=== PATIENT | female | born 1950 | race Asian ===

== ENCOUNTER 2022-08-09 11:53 | Inpatient (IN) | payer OTHER ==
[~2022-08-09] VITALS: Ht 154.9 cm; Wt 65.8 kg
--- NOTE | 2022-08-09 12:34 | NUR ---
pt placed in bed 02
--- NOTE | 2022-08-09 12:37 | NUR ---
PT REFUSING BLOOD DRAW AT THIS TIME.
[2022-08-09 12:38] VITALS: BP 140/81
--- NOTE | 2022-08-09 13:00 | NUR ---
XRAY DONE BEDSIDE.
--- NOTE | 2022-08-09 13:58 | NUR ---
JENNIE CAME INTO BEDSIDE. APPLY JUICE OFFERED TO PT.
[2022-08-09 14:26] LABS: BASOPHILS % (AUTO) 0.1 % (0.0-2.0); EOSINOPHILS % (AUTO) 0.3 % (0.0-4.0); HEMATOCRIT 26.5 % (36-48); HEMOGLOBIN 9.3 g/dL (12.0-16.0); LYMPHOCYTES # (AUTO) 0.6 K/uL (2.5-16.5); LYMPHOCYTES % (AUTO) 10.2 % (20.5-51.1); MEAN CORPUSCULAR HEMOGLOBIN 30 pg (27-31); MEAN CORPUSCULAR HGB CONC 35 g/dL (33-37); MEAN CORPUSCULAR VOLUME 84.4 fL (80-94); MONOCYTES # (AUTO) 0.3 K/uL (0.8-1.0); MONOCYTES % (AUTO) 5.4 % (1.7-9.3); NEUTROPHILS # (AUTO) 5.1 K/uL (1.8-7.7); PLATELET COUNT (AUTO) 207 K/uL (140-450); RED BLOOD CELL COUNT(AUTO) 3.14 MIL/uL (4.20-5.40); RED CELL DISTRIBUTION WIDTH 14.2 % (11.6-13.7); WHITE BLOOD COUNT (AUTO) 6.1 K/uL (4.8-10.8)
[2022-08-09 14:47] LABS: ALBUMIN 3.5 g/dL (3.4-5.0); ANION GAP 12.3 (8-16); ASPARTATE AMINOTRANSFERASE 16 U/L (15-37); CARBON DIOXIDE 28.2 mmol/L (21-32); CHLORIDE 99 mmol/L (98-107); CREATININE 0.3 mg/dL (0.6-1.3); GLUCOSE 72 mg/dL (74-106); POTASSIUM 3.5 mmol/L (3.5-5.1); SODIUM SERUM 136 mmol/L (136-145); TOTAL BILIRUBIN 0.4 mg/dL (0.0-1.0); UREA NITROGEN, BLOOD 19 mg/dL (7-18)
[2022-08-09] MEDS ORDERED: DEXTROSE 50% 50 ML SYR IVP ONE ×2 (16:11→16:15)
[2022-08-09] MEDS ORDERED: DEXT 5% / NACL 0.9% 500 ML IV ONE (16:15)
--- NOTE | 2022-08-09 16:15 | NUR ---
NAHUN AGAIN 31. D50W 50ML GIVEN IVP. DR. MUNOZ NOTIFIED STAT.
[2022-08-09] MEDS ORDERED: ONDANSETRON 4 MG/2 ML VIAL IVP PRN (16:25)
[2022-08-09] MEDS ORDERED: ACETAMINOPHEN 325 MG TAB PO PRN (16:25)
[2022-08-09] MEDS ORDERED: DOCUSATE SODIUM 100 MG GELCAP PO PRN (16:25)
[2022-08-09] MEDS ORDERED: MORPHINE SULFATE 2 MG/ML SYR IVP PRN (16:25)
[2022-08-09] MEDS ORDERED: POTASSIUM CHLORIDE 10 MEQ TABER PO PRN (16:25)
[2022-08-09 16:33] LABS: APPEARANCE,URINE CLEAR (CLEAR); BILIRUBIN,URINE NEGATIVE (NEGATIVE); BLOOD, URINE NEGATIVE (NEGATIVE); COLOR,URINE YELLOW (YELLOW); LEUKOCYTE ESTERASE ,URINE NEGATIVE (NEGATIVE); NITRITE, URINE NEGATIVE (NEGATIVE); UGLUCOSE NEGATIVE (NEGATIVE)
--- NOTE | 2022-08-09 17:01 | NUR ---
PATIENT HAS BEEN SCREENED AND CATEGORIZED MODERATE NUTRITION RISK. PATIENT WILL BE SEEN WITHIN 3-5 DAYS OF ADMISSION. REVIEWED BY AUDRA MERINO RD
[2022-08-09] MEDS: DEXT 5% /NACL 0.9% 1,000 ML IV SCH (18:06)
--- NOTE | 2022-08-09 19:30 | NUR ---
Patient received on bed lying comfortably and awake. Alert and oriented x4. No acute distress. No complaints of pain or discomfort. Respirations even and unlabored.
[2022-08-09] MEDS ORDERED: DEXTROSE 50% 50 ML SYR IVP SCH (21:30)
--- NOTE | 2022-08-09 22:13 | NUR ---
Blood sugar check was done at 2109, result was 38 mg/dl. Called Dr. Lozada, cyber security consultant physician for Dr. Marsh, and was notified of patient's blood sugar. New order of D50 50 ml IV once obtained. Noted and carried out. D50 given at 2144. Blood sugar rechecked at 2204, result was 205 mg/dl.
[2022-08-09] MEDS ORDERED: ZOLPIDEM 5 MG TAB ONE ×2 (23:55→23:59)
[2022-08-09] MEDS: ZOLPIDEM 10 MG TAB PO PRN (23:56)
[2022-08-10] MEDS: DEXT 5% /NACL 0.9% 1,000 ML IV SCH ×2 (06:47→21:01)
--- NOTE | 2022-08-10 07:00 | NUR ---
Called Dr. Lozada and notified him of patient's last blood sugar after the D50 was given as ordered. Asked Dr. Lozada for order of blood sugar check before meals and bedtime including a D50 order as needed for low blood sugar. Dr. Lozada approved it. Noted and carried out. Blood sugar checked, result is 205 mg/dl.
[2022-08-10] MEDS ORDERED: DEXTROSE 50% 50 ML SYR IVP PRN ×2 (07:05→09:00)
--- NOTE | 2022-08-10 07:40 | NUR ---
pt got up ambulated to the commode w steady gait, had a bm, soft stool, talking in Tajik no facial grimacing or grunting, 02 sat 95% at 2 l/m via nc, removed o2, sr up times 2.
[2022-08-10 07:42] LABS: BASOPHILS % (AUTO) 0.1 % (0.0-2.0); EOSINOPHILS # (AUTO) 0.1 K/uL (0-0.4); EOSINOPHILS % (AUTO) 0.9 % (0.0-4.0); HEMATOCRIT 25.7 % (36-48); HEMOGLOBIN 8.6 g/dL (12.0-16.0); LYMPHOCYTES # (AUTO) 0.6 K/uL (2.5-16.5); LYMPHOCYTES % (AUTO) 10.9 % (20.5-51.1); MEAN CORPUSCULAR HEMOGLOBIN 29 pg (27-31); MEAN CORPUSCULAR HGB CONC 34 g/dL (33-37); MEAN CORPUSCULAR VOLUME 87.6 fL (80-94); MONOCYTES # (AUTO) 0.3 K/uL (0.8-1.0); MONOCYTES % (AUTO) 5.5 % (1.7-9.3); NEUTROPHILS # (AUTO) 4.9 K/uL (1.8-7.7); NEUTROPHILS % (AUTO) 82.6 % (42.2-75.2); PLATELET COUNT (AUTO) 190 K/uL (140-450); RED BLOOD CELL COUNT(AUTO) 2.94 MIL/uL (4.20-5.40); RED CELL DISTRIBUTION WIDTH 14.1 % (11.6-13.7); WHITE BLOOD COUNT (AUTO) 5.9 K/uL (4.8-10.8)
--- NOTE | 2022-08-10 08:10 | NUR ---
PT TRANSFERRED TO FLOOR, REPORT TO SALEEM, NO INCIDENTS AT TRANSFER TIME, PT CALM AND COOPERATIVE, 02 SAT 98% RA
--- NOTE | 2022-08-10 08:30 | NUR ---
RECIEVED PATIENT FROM ER, AOx4. PATIENT IS AMBULATORY WITH ASSISTANCE. PATIENT HAS DEMENTIA AND MUST BE MONITORED DUE TO HER BEING AMBULATORY. PATIENT DOES NOT WANT BEDSIDE COMODE AND WISHES TO BE ASSISTED TO BATHROOM.
[2022-08-10 09:30] LABS: ANION GAP 11.8 (8-16); CARBON DIOXIDE 26.9 mmol/L (21-32); CHLORIDE 99 mmol/L (98-107); CREATININE 0.6 mg/dL (0.6-1.3); GLUCOSE 181 mg/dL (74-106); POTASSIUM 3.7 mmol/L (3.5-5.1); SODIUM SERUM 134 mmol/L (136-145); UREA NITROGEN, BLOOD 17 mg/dL (7-18)
[2022-08-10] MEDS: MAG SULF 2000 MG/WATER PREMIX 50 ML IV PRN (11:31)
[2022-08-10] MEDS: BLOOD GLUCOSE MONITORING 1 DEV DEV FS SCH ×3 (11:50→21:00)
[2022-08-10 12:00] VITALS: BP 105/99
[2022-08-10] MEDS: INSULIN LISPRO SLIDING SCALE 100 UNITS/ML VIAL SUBQ PRN ×2 (12:40→23:13)
[2022-08-10 16:30] VITALS: BP 122/67
--- NOTE | 2022-08-10 19:48 | NUR ---
ENDORSED PT TO PUBLISHING AGENT NURSE FOR CONTINUITY OF CARE. PT STABLE AT THIS TIME.
[2022-08-10 20:00] VITALS: BP 138/70
[2022-08-11] VITALS: BP 152/68
[2022-08-11] MEDS ORDERED: LORazepam 2 MG/ML VIAL IVP STA (01:07)
--- NOTE | 2022-08-11 01:40 | NUR ---
Pt awake, agitated and disoriented, refused to stay in bed, refused care, walking out in hallways, unable to to reorient or redirect, administered, ativan 2mg ivp as ordered at 01:08, pt continued to get out of bed and hit staff when attempting to redirect. pt's son called and informed of the situation , aware of Ativan given. Md bed control specialist , Dr. Samuels informed of the above, ordered for restraint, park interpreter utilized, #[id number], pt confused per park interpreter. restraint applied, pt took restraint and walked in hallways, with risk for fall. Notified Dr. Samuels, ordered, ativan 2mg ivp stat admin x1, pt in bed, at this time, restraint removed cont. to monitor
[2022-08-11 04:00] VITALS: BP 142/52
[2022-08-11 06:03] LABS: BASOPHILS % (AUTO) 0.2 % (0.0-2.0); EOSINOPHILS # (AUTO) 0.1 K/uL (0-0.4); HEMATOCRIT 25.8 % (36-48); HEMOGLOBIN 8.8 g/dL (12.0-16.0); LYMPHOCYTES # (AUTO) 0.6 K/uL (2.5-16.5); MEAN CORPUSCULAR HEMOGLOBIN 30 pg (27-31); MEAN CORPUSCULAR HGB CONC 34 g/dL (33-37); MEAN CORPUSCULAR VOLUME 86.5 fL (80-94); MONOCYTES # (AUTO) 0.4 K/uL (0.8-1.0); NEUTROPHILS # (AUTO) 6.1 K/uL (1.8-7.7); PLATELET COUNT (AUTO) 200 K/uL (140-450); RED BLOOD CELL COUNT(AUTO) 2.98 MIL/uL (4.20-5.40); RED CELL DISTRIBUTION WIDTH 14.3 % (11.6-13.7); WHITE BLOOD COUNT (AUTO) 7.2 K/uL (4.8-10.8)
[2022-08-11 06:27] LABS: CARBON DIOXIDE 28.6 mmol/L (21-32); CHLORIDE 97 mmol/L (98-107); CREATININE 0.5 mg/dL (0.6-1.3); GLUCOSE 190 mg/dL (74-106); POTASSIUM 3.6 mmol/L (3.5-5.1); SODIUM SERUM 132 mmol/L (136-145); UREA NITROGEN, BLOOD 10 mg/dL (7-18)
--- NOTE | 2022-08-11 07:15 | NUR ---
pt awake at this time, incontinent. refused accucheck as ordered, refused to be cleaned. pt care endorsed pt care to incoming rn
[2022-08-11 07:16] LABS: NEUTROPHILS % (AUTO) 83.9 % (42.2-75.2)
[2022-08-11 07:17] LABS: LYMPHOCYTES % (AUTO) 8.9 % (20.5-51.1)
[2022-08-11] MEDS: BLOOD GLUCOSE MONITORING 1 DEV DEV FS SCH ×4 (07:30→20:40)
--- NOTE | 2022-08-11 07:30 | NUR ---
RECEIVED PATIENT FROM ELECTRICIAN TECHNICIAN NURSE. PATIENT WAS ON BED, WITH SOILED LINNEN AND REFUSES TO HAVE WEARING APPAREL PRESSER ATTACHED. PATIENT WAS ALSO OUT OF HER RESTRAINTS.
[2022-08-11 08:00] VITALS: BP 109/52
[2022-08-11] MEDS: DEXT 5% /NACL 0.9% 1,000 ML IV SCH (11:19)
[2022-08-11 12:00] VITALS: BP 116/74
--- NOTE | 2022-08-11 12:00 | NUR ---
PATIENT ATTEMPTS TO BREAK FREE FROM RESTRAINT. AT RISK FOR INJURY AND RISK FOR FALL. PATIENT REFUSES TO PUT ON TELEMETRY. AND ATTEMPTS TO REMOVE IV. ATIVAN PRN GIVEN TO PREVENT INJURY
[2022-08-11] MEDS: LORazepam 2 MG/ML VIAL IVP PRN ×4 (12:01→21:42)
--- NOTE | 2022-08-11 13:26 | NUR ---
ATIVAN NOT EFFECTIVE AFTER 1 HOUR. PATIENT KEEPS TRYING TO GET OUT OF BED SPITTING, HITTING, PULLING OUT IV. PT HIGH RISK FOR FALL. CONTACTED DR CARLISLE FOR HALDOL OR BENADRYL PRN ORDERS FOR AGITATION.
[2022-08-11] MEDS ORDERED: QUEtiapine FUMARATE 25 MG TAB PO SCH ×2 (13:40→14:15)
[2022-08-11] MEDS: QUEtiapine FUMARATE 25 MG TAB PO SCH (13:57)
[2022-08-11 16:00] VITALS: BP 128/61
[2022-08-11] MEDS: MAG SULF 2000 MG/WATER PREMIX 50 ML IV PRN (16:05)
[2022-08-11] MEDS: INSULIN LISPRO SLIDING SCALE 100 UNITS/ML VIAL SUBQ PRN (17:40)
--- NOTE | 2022-08-11 19:29 | NUR ---
ENDORSED PATIENT TO PERSON INVESTIGATOR NURSE JANELLE FOR CONTINUITY OF CARE.
[2022-08-11 20:00] VITALS: BP 118/69
--- NOTE | 2022-08-11 20:40 | NUR ---
assessment completed plan of care reviewed pt combative agitated blood glucose 59 d50 as ordered ativan as ordered will continue to monitor and assess
--- NOTE | 2022-08-11 21:38 | NUR ---
RIGHT HAND IV SITE NOT GOOD ATIVAN 2MG NOT GIVEN LAYLA TO IV SITE NOT GOOD LEAKING WITH BLOOD IV SITE DISCONTINUE NEW SITE STARETED AT LEFT AC 20 G GOOD BLOOD RETURN ATIVAN 2MG GIVEN AT NEW SITE [T COMBATIVE
--- NOTE | 2022-08-11 21:40 | NUR ---
BLOOD GLUCOSE AFTER D50 111MG/DL
[2022-08-11] MEDS ORDERED: LORazepam 2 MG/ML VIAL IVP SCH (23:30)
--- NOTE | 2022-08-11 23:47 | NUR ---
PT AWAKE COMBATIVE MD AWARE WITH 1X DOSE OF ATIVAN GIVEN NOW
--- NOTE | 2022-08-11 23:58 | NUR ---
PT ATTMEPTING TO GET OUT OF BED WITH FACIAL GRIMMACING WILL MEDICATE FOR PAIN
[2022-08-12] VITALS: BP 122/68
[2022-08-12] MEDS: ZOLPIDEM 10 MG TAB PO PRN (00:13)
[2022-08-12] MEDS: DEXT 5% /NACL 0.9% 1,000 ML IV SCH ×2 (01:37→16:04)
--- NOTE | 2022-08-12 03:20 | NUR ---
UPON ROUNDING PT OUT OF RESTRAINTS AND RESLTESS PT REPOSITIONED RESTRAINTS REAPPLIED AND WILL GIVE ATIVAN ORDERED
[2022-08-12 04:00] VITALS: BP 127/63
[2022-08-12] MEDS: LORazepam 2 MG/ML VIAL IVP PRN ×2 (04:04→15:32)
[2022-08-12 05:50] LABS: EOSINOPHILS # (AUTO) 0.1 K/uL (0-0.4); EOSINOPHILS % (AUTO) 1.8 % (0.0-4.0); HEMATOCRIT 24.7 % (36-48); HEMOGLOBIN 8.6 g/dL (12.0-16.0); LYMPHOCYTES # (AUTO) 0.8 K/uL (2.5-16.5); LYMPHOCYTES % (AUTO) 16.5 % (20.5-51.1); MEAN CORPUSCULAR HEMOGLOBIN 30 pg (27-31); MEAN CORPUSCULAR HGB CONC 35 g/dL (33-37); MEAN CORPUSCULAR VOLUME 86.5 fL (80-94); MONOCYTES # (AUTO) 0.4 K/uL (0.8-1.0); MONOCYTES % (AUTO) 7.8 % (1.7-9.3); NEUTROPHILS # (AUTO) 3.7 K/uL (1.8-7.7); NEUTROPHILS % (AUTO) 73.9 % (42.2-75.2); PLATELET COUNT (AUTO) 186 K/uL (140-450); RED BLOOD CELL COUNT(AUTO) 2.85 MIL/uL (4.20-5.40); RED CELL DISTRIBUTION WIDTH 14.5 % (11.6-13.7)
[2022-08-12 06:09] LABS: ANION GAP 8.6 (8-16); CARBON DIOXIDE 30.6 mmol/L (21-32); CHLORIDE 101 mmol/L (98-107); CREATININE 0.4 mg/dL (0.6-1.3); GLUCOSE 155 mg/dL (74-106); POTASSIUM 3.2 mmol/L (3.5-5.1); SODIUM SERUM 137 mmol/L (136-145); UREA NITROGEN, BLOOD 7 mg/dL (7-18)
--- NOTE | 2022-08-12 06:13 | NUR ---
BLOOD GLUCOSE 153 NO COVERAGE GIVEN AT THIS TIME SECONDARY TO PT 59 AT HS AND D50 GIVEN WILL ENDORSE TO AM SHIFT TO GIVE COVERAGE IF PT EATS
--- NOTE | 2022-08-12 07:15 | NUR ---
RECEIVED REPORT FROM NIGHTSHIFT NURSE. PT IS RESTING IN BED, SHOWING SIGNS OF CONFUSION. SLIPPED OUT OF RESTRAINTS, RESTRAINTS REAPPLIED.
[2022-08-12] MEDS: BLOOD GLUCOSE MONITORING 1 DEV DEV FS SCH ×3 (07:57→16:44)
[2022-08-12 08:00] VITALS: BP 136/67
[2022-08-12] MEDS: QUEtiapine FUMARATE 25 MG TAB PO SCH (08:57)
--- NOTE | 2022-08-12 11:20 | NUR ---
SCREEN FOR LOW VIKA SCALE AT RISK, CONTINUE TO FOLLOW PRESSURE ULCER PREVENTION INTERVENTIONS. -TURN AND REPOSITION PATIENT Q 2H, ASSIST IF NEEDED -ASSESS AND MONITOR SKIN CONDITION DURING POSITION CHANGES -OFFLOAD BILATERAL HEELS BY PLACING PILLOWS UNDER CALVES AT ALL TIMES, UNLESS OTHERWISE CONTRAINDICATED -PRESSURE REDISTRIBUTION BY PLACING PILLOWS AND OFFLOADING SACRALCOCCYX -KEEP SKIN CLEAN AND DRY AT ALL TIMES.
[2022-08-12] MEDS: INSULIN LISPRO SLIDING SCALE 100 UNITS/ML VIAL SUBQ PRN (11:55)
[2022-08-12 12:00] VITALS: BP 134/75
[2022-08-12] MEDS ORDERED: HUMSLIDE SUBQ (12:06)
[2022-08-12] MEDS ORDERED: DOCU-299 PO (12:06)
[2022-08-12] MEDS ORDERED: QUET25TA46 PO (12:06)
--- NOTE | 2022-08-12 13:27 | NUR ---
PT FAMILY CONTACTED AT 1325 AND INFORMED OF DISCHARGE. PT FAMILY UNDERSTOOD AND HAS NO QUESTIONS.
--- NOTE | 2022-08-12 15:04 | NUR ---
BUCKY NIÑO RECEIVED ORDER FOR PT TO DISCHARGE BACK TO SNF. FAXED ALL PAPERWORK TO [facility]. SPOKE WITH PALOMO AT [facility] LOCATED AT [address] [place] [address], PT WAS ACCEPTED BACK AND WILL BE GOING TO ROOM 30-A UNDER DR RUTLEDGE. TRANSPORTATION SET UP WITH CRISTINA AT [facility] WITH A [id number] [place] WEIGHER TIME. CHARGE NURSE UGO AND SON AMANDA AWARE OF THE ABOVE INFORMATION.
[2022-08-12 16:00] VITALS: BP 124/68
--- NOTE | 2022-08-12 16:34 | NUR ---
FULL REPORT WAS GIVEN TO HAYLEY FROM [facility] ON PTS RETURNING. ALL QUESTIONS WAS ANSWERED, UNIT TELEPHONE PROVIDED FOR FURTHER QUESTIONS. CLERICAL SPECIALIST TIME OF [id number] WAS GIVEN.
--- NOTE | 2022-08-12 16:44 | NUR ---
148 BLOOD GLUCOSE, NO INSULIN COVERAGE NEEDED.
--- NOTE | 2022-08-12 18:25 | NUR ---
PT WAS PICKED UP IN STABLE CONDITION. NEW DIAPER APPLIED. ALL BELONGINGS IN POSSESSION WITH TRANSPORT PERSONNEL. IV REMOVED, CATH IN PLACE. ALL DC PAPERWORK WITH TRANSPORT PERSONNEL. VSS. TELE MONITOR RETURNED TO ELECTRIC BLANKET PACKER.
== END 2022-08-12 18:24 | DRG 917 ==
LOC: MED 11:53 → MMU 16:32 → MTU 08-10 16:09
PROVIDERS: ADMIT Family Medicine; ATTEND Family Medicine
DX: T38.3X1A Poisoning by insulin and oral hypoglycemic [antidiabetic] drugs, accidental (unintentional), initial encounter (principal); J96.00 Acute respiratory failure, unspecified whether with hypoxia or hypercapnia; E87.1 Hypo-osmolality and hyponatremia; E11.649 Type 2 diabetes mellitus with hypoglycemia without coma; I10 Essential (primary) hypertension; G30.9 Alzheimer's disease, unspecified; F02.80 Dementia in other diseases classified elsewhere, unspecified severity, without behavioral disturbance, psychotic disturbance, mood disturbance, and anxiety; J44.9 Chronic obstructive pulmonary disease, unspecified; M19.90 Unspecified osteoarthritis, unspecified site; E78.5 Hyperlipidemia, unspecified; K21.9 Gastro-esophageal reflux disease without esophagitis; Z20.822 Contact with and (suspected) exposure to COVID-19
CPT/HCPCS: 36415; 71045; 80048; 80053; 81003; 82948; 83036; 83735; 83880; 85025; 87081; 93005; 96374; 96375; 96376; 99285; J2060; J2270; J3475; Q0092